=== PATIENT | female | born 1980 | race African-American/Black ===

== ENCOUNTER 2016-10-30 12:16 | Emergency (ER) | payer OTHER ==
[~2016-10-30] VITALS: Ht 165.1 cm; Wt 67.4 kg
[~2016-10-30 12:16] MED LIST: ADDERALL10 MG PO; ADDERALL15 MG PO; ANTIVERT25 MG PO; CARDIZEM30 MG PO; CIPRO500 MG PO; COLACE100 MG PO; FEOSOL325 MG PO; FIORICET,ESG1 TABLET PO; HYDROCODON-ACE1 EAC8 PO; IMITREX50 MG PO; MIRALAX17 GM PO; MOTRIN800 MG PO; NAPROSYN500 MG PO; NOHOMEMEDS; PAROXETINE HCL20 MG PO; PAXIL20 MG PO; REGLAN10 MG PO; TRAMADOL HCL50 MG PO; VYVANSE30 MG PO; ZYRTEC10 M3 PO
[2016-10-30 13:22] LABS: ADD MIUA? YES; BILIRUBIN NEGATIVE; BLOOD TRACE; COLOR YELLOW ((YELLOW)); GLUCOSE (STRIP) NEGATIVE; KETONES NEGATIVE; LEUKOCYTES NEGATIVE; NITRITE NEGATIVE; PH, URINE 6.5 (5-8); PROTEIN (STRIP) NEGATIVE; SPECIFIC GRAVITY 1.018 (1.000-1.030)
[2016-10-30 13:33] LABS: HEMATOCRIT 35.9 % (36.0-46.0); MCH 27.8 PG (29.0-34.0); MCHC 32.9 G/DL (30.0-36.0); MCV 84.7 FL (83-99); MEAN PLAT.VOLUME 10.8 uM^3 (9.5-12.4); PLATELET COUNT 198 K/uL (156-360); RBC DIS.WIDTH-CV 12.7 % (11.8-14.6); RBC DIS.WIDTH-SD 38.4 % (39-53); RED BLOOD COUNT 4.24 M/uL (3.80-5.20); WHITE BLOOD COUNT 4.8 K/uL (4.1-10.2)
[2016-10-30 13:37] LABS: CHLORIDE 109 mEq/L (99-109); SODIUM 140 mEq/L (136-147)
[2016-10-30 13:40] LABS: GLUCOSE 93 mg/dL (70-99)
[2016-10-30 13:41] LABS: ANION GAP 6 MEQ/L (2-14)
[2016-10-30 13:42] LABS: TOTAL BILIRUBIN 0.6 mg/dL (0.0-1.0)
[2016-10-30 13:43] LABS: ALKALINE PHOSPHATASE 57 IU/L (3-129); GFR ESTIMATE (CALCULATED) > 59 mL/min/
[2016-10-30 13:44] LABS: UREA NITROGEN (BUN) 10 mg/dL (9-23)
[2016-10-30 13:52] LABS: QUANTITATIVE HCG < 4.0 MIU/ML
[2016-10-30 14:05] LABS: EPITHELIAL CELLS RARE; MUCUS NONE SEEN; RED BLOOD CELLS RARE /HPF (0-5); WHITE BLOOD CELLS NONE SEEN /HPF (0-5)
[2016-10-30 14:06] LABS: BACTERIA RARE; CASTS NONE SEEN /LPF; CRYSTALS NONE SEEN; UCUL ADDED? NO
[2016-10-30] MEDS ORDERED: VITAMIN D32000 UNI1 PO (15:39)
[2016-10-30] MEDS ORDERED: IBUPROFEN800 MG PO (15:40)
[2016-10-30] MEDS ORDERED: CITRATE OF MAG296 ML PO (15:43)
[2016-10-30 15:53] VITALS: BP 165/85
== END 2016-10-30 15:53 | disposition home or self-care (01) ==
LOC: RME 12:16 → EME 12:16 → RME 15:53
DX: K59.00 Constipation, unspecified (principal); R10.9 Unspecified abdominal pain; K21.9 Gastro-esophageal reflux disease without esophagitis; Z87.891 Personal history of nicotine dependence
CPT/HCPCS: 74022; 80053; 81003; 84702; 85027; 99281; 99283

== ENCOUNTER 2017-05-17 04:56 | Emergency (ER) | payer OTHER ==
[~2017-05-17] VITALS: Ht 165.1 cm; Wt 71.4 kg
[~2017-05-17 04:56] MED LIST changes: +CITRATE OF MAG296 ML PO; +IBUPROFEN800 MG PO; +VITAMIN D32000 UNI1 PO
[2017-05-17] MEDS ORDERED: TRAMADOL HCL50 MG PO (07:23)
[2017-05-17] MEDS ORDERED: PEN-VEE K,VEET500 MG PO (07:23)
[2017-05-17] MEDS ORDERED: BACLOFEN10 MG PO (07:29)
[2017-05-17] MEDS ORDERED: CETIRIZINE HCL10 M2 PO (07:29)
[2017-05-17] MEDS ORDERED: GABAPENTIN100 MG PO (07:30)
[2017-05-17] MEDS ORDERED: ONDANSETRON ODT4 MG PO (07:30)
[2017-05-17] MEDS ORDERED: BUSPAR5 MG PO (07:30)
[2017-05-17 07:35] VITALS: BP 165/71
== END 2017-05-17 07:39 | disposition home or self-care (01) ==
LOC: EME 04:56
DX: K02.9 Dental caries, unspecified (principal); F98.8 Other specified behavioral and emotional disorders with onset usually occurring in childhood and adolescence; F41.9 Anxiety disorder, unspecified
CPT/HCPCS: 99281; 99283

== ENCOUNTER 2017-08-13 08:13 | Emergency (ER) | payer OTHER ==
[~2017-08-13] VITALS: Ht 165.1 cm; Wt 65.8 kg
[~2017-08-13 08:13] MED LIST changes: +BACLOFEN10 MG PO; +BUSPAR5 MG PO; +CETIRIZINE HCL10 M2 PO; +GABAPENTIN100 MG PO; +ONDANSETRON ODT4 MG PO; +PEN-VEE K,VEET500 MG PO
[2017-08-13 09:12] LABS: HEMATOCRIT 33.3 % (36.0-46.0); MCH 27.4 PG (29.0-34.0); MCHC 31.8 G/DL (30.0-36.0); PLATELET COUNT 149 K/uL (156-360); RBC DIS.WIDTH-CV 13.2 % (11.8-14.6); RBC DIS.WIDTH-SD 40.7 % (39-53); RED BLOOD COUNT 3.87 M/uL (3.80-5.20); WHITE BLOOD COUNT 3.2 K/uL (4.1-10.2)
[2017-08-13 09:20] LABS: CHLORIDE 107 mEq/L (99-109); POTASSIUM 3.6 mEq/L (3.7-5.4); SODIUM 141 mEq/L (136-147)
[2017-08-13 09:22] LABS: GLUCOSE 94 mg/dL (70-99)
[2017-08-13 09:23] LABS: ANION GAP 9 MEQ/L (2-14)
[2017-08-13 09:26] LABS: GFR ESTIMATE (CALCULATED) > 59 mL/min/
[2017-08-13 09:27] LABS: UREA NITROGEN (BUN) 10 mg/dL (9-23)
[2017-08-13] MEDS ORDERED: FOLIC ACID1 MG PO (10:56)
[2017-08-13] MEDS ORDERED: AMITIZA24 MICROGR PO (10:57)
[2017-08-13] MEDS ORDERED: TECFIDERA240 MG PO (10:57)
[2017-08-13] MEDS ORDERED: FLEXERIL10 MG PO (12:31)
[2017-08-13 12:52] VITALS: BP 130/85
== END 2017-08-13 12:52 | disposition home or self-care (01) ==
LOC: EME 08:13
PROVIDERS: Nurse Practitioner Family
DX: S86.912A Strain of unspecified muscle(s) and tendon(s) at lower leg level, left leg, initial encounter (principal); X50.9XXA Other and unspecified overexertion or strenuous movements or postures, initial encounter; Y93.01 Activity, walking, marching and hiking; G35 Multiple sclerosis; D64.9 Anemia, unspecified; D70.2 Other drug-induced agranulocytosis; T50.995A Adverse effect of other drugs, medicaments and biological substances, initial encounter; K21.9 Gastro-esophageal reflux disease without esophagitis; Z87.891 Personal history of nicotine dependence
CPT/HCPCS: 76882; 80048; 85027; 93971; 99281; 99285

== ENCOUNTER 2017-09-27 19:28 | Emergency (ER) | payer OTHER ==
[~2017-09-27] VITALS: Ht 165.1 cm; Wt 66.7 kg
[~2017-09-27 19:28] MED LIST changes: +AMITIZA24 MICROGR PO; +FLEXERIL10 MG PO; +FOLIC ACID1 MG PO; +TECFIDERA240 MG PO
[2017-09-27 20:00] LABS: HEMATOCRIT 34.4 % (36.0-46.0); MCH 27.9 PG (29.0-34.0); MCHC 32.6 G/DL (30.0-36.0); MCV 85.8 FL (83-99); MEAN PLAT.VOLUME 10.8 uM^3 (9.5-12.4); PLATELET COUNT 175 K/uL (156-360); RBC DIS.WIDTH-CV 13.3 % (11.8-14.6); RBC DIS.WIDTH-SD 42.4 % (39-53); RED BLOOD COUNT 4.01 M/uL (3.80-5.20); WHITE BLOOD COUNT 5.1 K/uL (4.1-10.2)
[2017-09-27 20:12] LABS: CHLORIDE 105 mEq/L (99-109); POTASSIUM 3.4 mEq/L (3.7-5.4); SODIUM 141 mEq/L (136-147)
[2017-09-27 20:14] LABS: GLUCOSE 115 mg/dL (70-99)
[2017-09-27 20:15] LABS: ANION GAP 10 MEQ/L (2-14)
[2017-09-27 20:17] LABS: GFR ESTIMATE (CALCULATED) > 59 mL/min/
[2017-09-27 20:18] LABS: UREA NITROGEN (BUN) 9 mg/dL (9-23)
[2017-09-27 20:22] LABS: TROP-I INTERPRETATION NEGATIVE; TROPONIN-I < 0.01 ng/mL (0.0-0.30)
[2017-09-27 21:37] LABS: QUANTITATIVE HCG < 4.0 MIU/ML
[2017-09-27 22:20] LABS: ADD MIUA? YES; BILIRUBIN NEGATIVE; BLOOD NEGATIVE; COLOR YELLOW ((YELLOW)); GLUCOSE (STRIP) NEGATIVE; KETONES NEGATIVE; LEUKOCYTES NEGATIVE; NITRITE NEGATIVE; PROTEIN (STRIP) NEGATIVE; SPECIFIC GRAVITY 1.015 (1.000-1.030)
[2017-09-27 22:23] LABS: BACTERIA RARE /HPF; EPITHELIAL CELLS RARE /HPF; MUCUS 1+ /LPF; RED BLOOD CELLS 0-5 /HPF (0-5); UCUL ADDED? NO; WHITE BLOOD CELLS 0-5 /HPF (0-5)
[2017-09-27 23:17] LABS: TROP-I INTERPRETATION NEGATIVE; TROPONIN-I < 0.01 ng/mL (0.0-0.30)
[2017-09-27 23:49] VITALS: BP 151/82
== END 2017-09-27 23:49 | disposition home or self-care (01) ==
LOC: RME 19:28 → EME 19:28 → RME 23:49
PROVIDERS: Physician Assistant
DX: R00.2 Palpitations (principal); R07.9 Chest pain, unspecified; H53.8 Other visual disturbances; G35 Multiple sclerosis; K21.9 Gastro-esophageal reflux disease without esophagitis; D64.9 Anemia, unspecified
CPT/HCPCS: 71020; 80048; 81003; 83735; 84484; 84702; 85027; 93005; 99281; 99284; J7040

== ENCOUNTER 2018-02-22 08:28 | Day surgery (SDC) | payer OTHER ==
[~2018-02-22] VITALS: Ht 162.6 cm; Wt 68.0 kg
[~2018-02-22 08:28] MED LIST changes: +LINZESS290 MCG PO; +MAGNESIUM250 MG PO; +NEURONTIN100 MG PO; +VITAMIN D-32000 UNI2 PO; +VYVANSE10 MG PO; -VYVANSE30 MG PO; +VYVANSE50 MG PO; +WELLBUTRIN SR100 MG PO
[2018-02-22 09:15] VITALS: BP 139/69
[2018-02-22] MEDS ORDERED: ENDOCET 5-3251 EACH PO (11:05)
[2018-02-22 11:55] VITALS: BP 145/65
[2018-02-22 12:55] VITALS: BP 149/77
== END 2018-02-22 12:55 | disposition home or self-care (01) ==
LOC: SDC 08:28
DX: N92.0 Excessive and frequent menstruation with regular cycle (principal); R94.31 Abnormal electrocardiogram [ECG] [EKG]
CPT/HCPCS: 88305; J1100; J1885; J2250; J2405; J3010